=== PATIENT | male | born 1985 | race Two or more races ===

== ENCOUNTER 2020-12-22 18:27 | Emergency (ER) | payer BC, OTHER ==
[~2020-12-22] VITALS: Ht 180.3 cm; Wt 113.4 kg
[2020-12-22 18:29] VITALS: BP 137/95
== END 2020-12-22 21:00 | disposition left against medical advice (07) ==
LOC: ER 18:31
DX: S81.812A Laceration without foreign body, left lower leg, initial encounter (principal); Z53.21 Procedure and treatment not carried out due to patient leaving prior to being seen by health care provider; V86.59XA Driver of other special all-terrain or other off-road motor vehicle injured in nontraffic accident, initial encounter; Y93.89 Activity, other specified; Y92.89 Other specified places as the place of occurrence of the external cause; Y99.8 Other external cause status